=== PATIENT | male | born 1965 | race Caucasian/White ===

== ENCOUNTER 2018-02-22 11:01 | Emergency (ER) | END 2018-02-22 13:30 | disposition home or self-care (01) ==

== ENCOUNTER → 2018-03-20 | Emergency (ER) | END | disposition home or self-care (01) ==

== ENCOUNTER 2018-05-02 12:17 | Emergency (ER) | END 2018-05-02 12:35 | disposition home or self-care (01) ==

== ENCOUNTER 2018-05-12 13:19 | Emergency (ER) | END 2018-05-12 16:49 | disposition home or self-care (01) ==

== ENCOUNTER 2019-03-05 19:46 | Emergency (ER) | payer SELFPAY ==
[~2019-03-05 19:46] MED LIST: GABA300C16 PO; HYDR-3980 PO; HYDR-4011 PO; IBUP-1542 PO; LEVO50TA7 PO; OMEP20CA16 PO; ORA20G7 BUCCAL; PENI500T PO
== END 2019-03-05 19:54 | disposition left against medical advice (07) ==
LOC: E/R 19:46
DX: Z53.21 Procedure and treatment not carried out due to patient leaving prior to being seen by health care provider (principal)